=== PATIENT | female | born 1970 | race Caucasian/White ===

== ENCOUNTER → 2016-06-30 | Outpatient (CLI) | payer OTHER ==
--- NOTE | 2016-06-30 09:26 | RAD ---
Lumbar spine, 5 views, 06/30/2016: History: Pain The lumbar vertebral heights are well-maintained. The intervertebral disc spaces are well preserved. There are mild sclerotic changes involving the facet joints in the lower lumbar spine. There is no evidence of spondylolysis. There is increased stool in the right colon. Surgical clips are noted in the right lower quadrant of the abdomen. IMPRESSION: 1. Mild lower lumbar facet joint arthropathy. 2. No acute lumbar spine abnormality is detected.
--- NOTE | 2016-06-30 09:32 | RAD ---
Pelvis with left hip, 2 views, 06/30/2016: History: Left hip pain No fracture or destructive bony lesion is seen. There is minimal narrowing of both hip joints. The articular surfaces are smooth. Surgical clips are present in the right lower quadrant. IMPRESSION: 1. Minimal narrowing of both hip joints. 2. No acute abnormality is detected.
== END | disposition home or self-care (01) ==
LOC: DXRADRC 08:43
PROVIDERS: ATTEND Physician Assistant Medical
DX: M54.40 Lumbago with sciatica, unspecified side (principal); M46.90 Unspecified inflammatory spondylopathy, site unspecified
CPT/HCPCS: 72110; 73501

== ENCOUNTER → 2016-12-20 | Outpatient (CLI) | payer OTHER ==
--- NOTE | 2016-12-20 10:29 | RAD ---
Indication injury. Pain. AP oblique and lateral views of the left ankle were obtained. No bony abnormality is seen
== END | disposition home or self-care (01) ==
LOC: DXRADRC 10:11
PROVIDERS: ATTEND Physician Assistant Medical
DX: M25.572 Pain in left ankle and joints of left foot (principal)
CPT/HCPCS: 73610

== ENCOUNTER 2018-03-11 16:01 | Emergency (ER) | payer OTHER ==
[2018-03-11 16:19] VITALS: BP 157/93
[2018-03-11] MEDS ORDERED: ALBUTEROL SULFATE 2.5 MG/3 ML NEBU. ONE (16:24)
[2018-03-11] MEDS ORDERED: IPRATRPIUM/ALBUTEROL 0.5/2.5MG 3 ML NEBU. ONE (16:26)
[2018-03-11] MEDS ORDERED: IPRATRPIUM/ALBUTEROL 0.5/2.5MG 3 ML NEBU. NEB ONE (16:45)
[2018-03-11] MEDS ORDERED: LIDOCAINE 2% VISCOUS 15 ML SOLUTION. SWSW ONE (16:45)
[2018-03-11] MEDS ORDERED: ALBU8.5H8 INH (17:11)
[2018-03-11] MEDS ORDERED: LIDO15SO2 MM (17:11)
--- NOTE | 2018-03-11 17:11 | PHYS DOC ---
Past History Past Medical History: Migraines Past Surgical History: Appendectomy Smoking: Non-smoker Alcohol Use: Occasionally Drug Use: None Adult General Chief Complaint Chief Complaint: FOREIGN BODY HPI HPI Patient is a 47 year old female who presents with complaining of foreign body sensation in her throat. Patient states she was eating cauliflower and felt something stuck in her throat had nausea and episodes of cough and feeling she needs to clear her throat for the last an hour. She denies vomiting and tolerated liquids. Patient did not have history of esophageal foreign body. Review of Systems Review of Systems Constitutional: Denies fever or chills [] Eyes: Denies change in visual acuity, redness, or eye pain [] HENT: Denies nasal congestion or sore throat [] Respiratory: Reports cough and shortness of breath[] Cardiovascular: No additional information not addressed in HPI [] GI: Denies abdominal pain, nausea, vomiting, bloody stools or diarrhea [] : Denies dysuria or hematuria [] Musculoskeletal: Denies back pain or joint pain [] Integument: Denies rash or skin lesions [] Neurologic: Denies headache, focal weakness or sensory changes [] Endocrine: Denies polyuria or polydipsia [] All other systems were reviewed and found to be within normal limits, except as documented in this note. Current Medications Current Medications Current Medications Medications (Trade) Dose Ordered Sig/Breana Start Time Stop Time Status Last Admin Dose Admin Albuterol Sulfate (Ventolin) 2.5 mg STK-MED ONCE 03/11/18 16:24 03/11/18 16:25 DC Albuterol/ Ipratropium (Duoneb) 3 ml STK-MED ONCE 03/11/18 16:26 03/11/18 16:27 DC Lidocaine HCl (Viscous Lidocaine) 15 ml 1X ONCE 03/11/18 16:45 03/11/18 16:47 DC 03/11/18 16:43 15 ML Allergies Allergies Allergies Coded Allergies Type Severity Reaction Last Updated Verified Penicillins Allergy Unknown 03/11/18 Yes Physical Exam Physical Exam Constitutional: Well developed, well nourished, mild distress, non-toxic appearance. [] HENT: Normocephalic, atraumatic, oropharynx moist, no oral exudates, nose normal. [] Eyes: PERRLA, EOMI, conjunctiva normal, no discharge. [] Neck: Normal range of motion, no tenderness, supple, no stridor. [] Cardiovascular:Heart rate regular rhythm, no murmur [] Lungs & Thorax: Bilateral breath sounds clear to auscultation [] Abdomen: Bowel sounds normal, soft, no tenderness, no masses, no pulsatile masses. [] Skin: Warm, dry, no erythema, no rash. [] Back: No tenderness, no CVA tenderness. [] Extremities: No tenderness, no cyanosis, no clubbing, ROM intact, no edema. [] Neurologic: Alert and oriented X 3, normal motor function, normal sensory function, no focal deficits noted. [] Psychologic: Affect normal, judgement normal, mood normal. [] Current Patient Data Vital Signs Vital Signs Date Time Temp Pulse Resp B/P (MAP) Pulse Ox O2 Delivery O2 Flow Rate FiO2 03/11/18 16:29 98 Room Air 03/11/18 16:19 97.7 79 16 EKG EKG [] Radiology/Procedures Radiology/Procedures [] Course & Med Decision Making Course & Med Decision Making Evaluation of patient in ER showed 47-year-old male patient with complaining of foreign body sensation in her throat. Patient had a table cough during exam and treated with lidocaine viscous and felt better. Patient tolerated oral intake in ER. Plan discharge patient home to diagnose of esophageal irritation and prescription of lidocaine viscous and albuterol inhaler. Dragon Disclaimer Dragon Disclaimer This electronic medical record was generated, in whole or in part, using a voice recognition dictation system. Departure Departure: Impression: Primary Impression: Sensation of foreign body in esophagus Disposition: HOME, SELF-CARE (at 1707) Condition: IMPROVED Referrals: DUKE PALACIOS APRN (PCP) Patient Instructions: Esophageal Spasm Additional Instructions: Drink plenty of liquids Follow-up with your primary care physician in 3-5 days Return to ER if not getting better Scripts Lidocaine HCl (Lidocaine HCl Viscous) 15 Ml Solution 15 ML MM QID PRN for PAIN, #120 ML Prov: IRAM VILLARREAL MD 03/11/18 Albuterol Sulfate (PROAIR HFA INHALER) 8.5 Gm Hfa.aer.ad 2 PUFF INH PRN Q6HRS PRN for SHORTNESS OF BREATH, #1 INHALER 0 Refills Prov: IRAM VILLARREAL MD 03/11/18 IRAM VILLARREAL MD Mar 11, 2018 17:11
== END 2018-03-11 17:30 | disposition home or self-care (01) ==
LOC: ER 16:01
DX: R09.89 Other specified symptoms and signs involving the circulatory and respiratory systems (principal); G43.909 Migraine, unspecified, not intractable, without status migrainosus; Z88.0 Allergy status to penicillin
CPT/HCPCS: 94640; 99283; J7620

== ENCOUNTER → 2019-03-12 | Outpatient (CLI) | payer OTHER ==
[~2019-03-12] MED LIST: ALBU2.5V8 INH; LIDO15SO2 MM
--- NOTE | 2019-03-12 15:18 | RAD ---
DATE: March 12, 2019 EXAM: DIGITAL DIAGNOSTIC BILATERAL, BREAST LEFT sonogram HISTORY: History of left breast lump and pain for many months. COMPARISON: None. Baseline mammogram. This study was interpreted with the benefit of Computerized Aided Detection (CAD). DIAGNOSTIC BILATERAL MAMMOGRAPHIC FINDINGS: Breast Density: HETERO The breast parenchyma is heterogenously dense, which could reduce sensitivity of mammography. Breast parenchyma level C. there is a nodule 2.5 cm straight back from the nipple CC and MLO projections. This results in focal compression view in the CC plane and is not going completely in the MLO projection. This most likely is benign finding but sonography will be performed. No focal mammographic abnormality seen to correspond to the palpable lump which is marked with a BB along the upper medial aspect of the left breast. No clustering of microcalcifications are evident on either side. LEFT BREAST SONOGRAPHY: High-resolution sonography of the palpable lump in the area of pain as indicated by the patient 8 cm from the nipple 11:00 position was performed. No focal sonographic abnormality seen here. At the 11:00 position 3 cm the nipple, a small complex hypoechoic nodule seen measuring 4 mm in greatest dimension. Thin echogenic capsule is seen sound through transmission is seen. No internal color flow is evident. Therefore, this most likely represents a small complex cyst. At the 6 clock position to summation the nipple, another similar problem complex cyst is seen measuring 3 mm in size. IMPRESSION: Probable benign mammographic nodule seen in the MLO projection only. Probable benign complex cysts of the left breast. Recommend a 6 month follow-up mammogram and sonogram of the left breast to ensure stability. No focal mammographic or sonographic abnormality is seen to correspond to the area of the palpable lump of the 11 o'clock position of the left breast as indicated by the patient. Therefore, with regard to any palpable abnormality, follow-up should be clinical. BI-RADS CATEGORY: 3 PROBABLE BENIGN-SHORT TERM F/U RECOMMENDED FOLLOW-UP: 6M 6 MONTH FOLLOW-UP PQRS compliance statement: Patient information was entered into a reminder system with a target due date September 11, 2019 for the next mammogram and sonogram. Mammography is a sensitive method for finding small breast cancers, but it does not detect them all and is not a substitute for careful clinical examination. A negative mammogram does not negate a clinically suspicious finding and should not result in delay in biopsying a clinically suspicious abnormality. "Our facility is accredited by the [employer] Mammography Program." The patient's breast density may affect the ability of mammography to detect breast cancer. There are 4 categories of breast density, A, B, C and D. Breast density A means that most of the breast tissue is replaced with adipose tissue and therefore is not dense. Breast density B means that the breast tissue is mildly dense and scattered. Breast density C means that the breast tissue is heterogeneously dense. Breast density D means that the breast tissue is very dense. Breast densities especially C and D may decrease the sensitivity of mammography to detect breast cancer. Therefore, the patient may benefit from 3-D breast mammography (3D breast tomography) as a part of their screening mammogram. Insurance may or may not pay for this additional imaging. The patient's breast density based on today's mammogram is category C.
--- NOTE | 2019-03-12 15:27 | RAD ---
EXAM: Pelvic sonogram. HISTORY: Dysfunctional uterine bleeding. TECHNIQUE: Sonographic imaging of the pelvis performed. COMPARISON: None. FINDINGS: The uterus measures 9.4 x 5.1 x 5.5 cm. The endometrial stripe measures 8 mm. The ovaries are normal in size and demonstrate normal blood flow. There are multiple ovarian follicles. There is a suspected complex left ovarian cyst measuring 1.4 cm, possibly hemorrhagic in etiology. This demonstrates no internal blood flow to suggest a solid lesion component. There is no pelvic free fluid. IMPRESSION: 1. 1.4 cm suspected complex left ovarian cyst, possibly hemorrhagic in etiology. 2. Otherwise, unremarkable pelvic sonogram. Electronically signed by: Ana Laura Tidwell MD (03/12/2019 3:24 PM) [place] [id number]
== END | disposition home or self-care (01) ==
LOC: US 13:02
PROVIDERS: ATTEND Physician Assistant Medical
DX: N83.8 Other noninflammatory disorders of ovary, fallopian tube and broad ligament (principal); N93.8 Other specified abnormal uterine and vaginal bleeding; N63.20 Unspecified lump in the left breast, unspecified quadrant
CPT/HCPCS: 76641; 76830; 76856; 77066

== ENCOUNTER → 2019-08-07 | Outpatient (CLI) | payer OTHER ==
[~2019-08-07] MED LIST changes: -LIDO15SO2 MM; +LIDO20SO10 MM
[2019-08-07 16:13] LABS: BASO # 0.1 x10^3/uL (0.0-0.2); BASO % 1 % (0-3); EOS # 0.2 x10^3/uL (0.0-0.7); EOS % 3 % (0-3); HEMOGLOBIN 12.7 g/dL (12.0-15.5); LYMPH # 2.5 x10^3/uL (1.0-4.8); LYMPH % 32 % (24-48); MEAN CORPUSCULAR HEMOGLOBIN 29 pg (25-35); MEAN CORPUSCULAR HGB CONC 33 g/dL (31-37); MEAN CORPUSCULAR VOLUME 87 fL (79-100); MONO # 0.6 x10^3/uL (0.0-1.1); MONO % 8 % (0-9); NEUT # 4.3 x10^3uL (1.8-7.7); NEUT % 56 % (31-73); PLATELET COUNT 337 x10^3/uL (140-400); RED BLOOD COUNT 4.36 x10^6/uL (3.50-5.40); RED CELL DISTRIBUTION WIDTH 13.4 % (11.5-14.5); WHITE BLOOD COUNT 7.7 x10^3/uL (4.0-11.0)
== END | disposition home or self-care (01) ==
LOC: LAB 15:49
PROVIDERS: ATTEND Nurse Practitioner Women's Health
DX: N92.0 Excessive and frequent menstruation with regular cycle (principal)
CPT/HCPCS: 36415; 85025

== ENCOUNTER 2020-02-27 19:31 | Emergency (ER) | payer OTHER ==
[~2020-02-27] VITALS: Ht 167.6 cm; Wt 65.0 kg
[2020-02-27 20:13] LABS: BASO % 0 % (0-3); EOS # 0.2 x10^3/uL (0.0-0.7); EOS % 3 % (0-3); HEMATOCRIT 37.4 % (36.0-47.0); HEMOGLOBIN 12.6 g/dL (12.0-15.5); LYMPH # 2.7 x10^3/uL (1.0-4.8); LYMPH % 41 % (24-48); MEAN CORPUSCULAR HEMOGLOBIN 28 pg (25-35); MEAN CORPUSCULAR HGB CONC 34 g/dL (31-37); MEAN CORPUSCULAR VOLUME 84 fL (79-100); MONO # 0.6 x10^3/uL (0.0-1.1); MONO % 10 % (0-9); NEUT # 3.1 x10^3uL (1.8-7.7); NEUT % 47 % (31-73); PLATELET COUNT 316 x10^3/uL (140-400); RED BLOOD COUNT 4.48 x10^6/uL (3.50-5.40); RED CELL DISTRIBUTION WIDTH 13.6 % (11.5-14.5); WHITE BLOOD COUNT 6.7 x10^3/uL (4.0-11.0)
--- NOTE | 2020-02-27 20:16 | RAD ---
Examination: CHEST AP ONLY History: Reason: covid / Spl. Instructions: / History: Comparison: 03/28/2014. Findings: AP portable upright frontal view of the chest was obtained. The cardiomediastinal silhouette is normal. Lungs are clear. Calcified granulomas involve the left lung. There is no pneumothorax. No pleural effusion is appreciated. No acute bone abnormality. IMPRESSION: No acute cardiopulmonary process. Electronically signed by: Hugo Mckinnon MD (02/27/2020 8:13 PM) [facility]
[2020-02-27 20:19] LABS: CALCIUM 8.2 mg/dL (8.5-10.1); CREATININE 0.9 mg/dL (0.6-1.0); GFR 66.8; POTASSIUM 3.3 mmol/L (3.5-5.1)
[2020-02-27 20:25] LABS: ALBUMIN 3.4 g/dL (3.4-5.0); ALBUMIN/GLOBULIN RATIO 0.9 (1.0-1.7); TOTAL BILIRUBIN 0.3 mg/dL (0.2-1.0); TOTAL PROTEIN 7.2 g/dL (6.4-8.2)
[2020-02-27 20:45] VITALS: BP 115/87
--- NOTE | 2020-02-27 20:48 | PHYS DOC ---
Past History Past Medical History: Migraines, Pneumonia Past Surgical History: Appendectomy Smoking: Non-smoker Alcohol Use: Occasionally Drug Use: None General Adult EDM: Chief Complaint: OTHER COMPLAINTS HPI: HPI: 49-year-old female presents with dizziness and shortness of breath. Patient was diagnosed with COVID-19 recently. She went to walk across the room and became a bit short of breath followed by dizziness. This made her a bit scared and she got more dizzy. She sat down and thought she was about to pass out. She had bilateral hand tingling. She has not had a fever at home. She is feeling more at baseline at this time. She has generalized body aches and fatigue. Review of Systems: Review of Systems: Constitutional: Denies fever or chills. Fatigue, body aches. Eyes: Denies change in visual acuity HENT: Denies nasal congestion or sore throat Respiratory: shortness of breath Cardiovascular: Denies chest pain or edema GI: Denies abdominal pain, nausea, vomiting, bloody stools or diarrhea : Denies dysuria Musculoskeletal: Denies back pain or joint pain Integument: Denies rash Neurologic: Denies headache, focal weakness or sensory changes Endocrine: Denies polyuria or polydipsia Lymphatic: Denies swollen glands Psychiatric: Denies depression or anxiety Allergies: Allergies: Allergies Coded Allergies Type Severity Reaction Last Updated Verified Penicillins Allergy Unknown 03/11/18 Yes tramadol Allergy Unknown 02/27/20 Yes Physical Exam: PE: Constitutional: Well developed, well nourished, no acute distress, non-toxic appearance. [] HENT: Normocephalic, atraumatic, bilateral external ears normal, oropharynx moist, no oral exudates, nose normal. [] Eyes: PERRLA, EOMI, conjunctiva normal, no discharge. [] Neck: Normal range of motion, no tenderness, supple, no stridor. [] Cardiovascular: Heart rate 70, regular rhythm, no murmur [] Lungs & Thorax: Bilateral breath sounds clear to auscultation [] Abdomen: Bowel sounds normal, soft, no tenderness, no masses, no pulsatile masses. [] Skin: Warm, dry, no erythema, no rash. [] Back: No tenderness, no CVA tenderness. [] Extremities: No tenderness, no cyanosis, no clubbing, ROM intact, no edema. [] Neurologic: Alert and oriented X 3, normal motor function, normal sensory function, no focal deficits noted. [] Psychologic: Affect normal, judgement normal, mood anxious [] Current Patient Data: Labs: Laboratory Tests Test 02/27/20 19:45 White Blood Count 6.7 x10^3/uL (4.0-11.0) Red Blood Count 4.48 x10^6/uL (3.50-5.40) Hemoglobin 12.6 g/dL (12.0-15.5) Hematocrit 37.4 % (36.0-47.0) Mean Corpuscular Volume 84 fL (79-100) Mean Corpuscular Hemoglobin 28 pg (25-35) Mean Corpuscular Hemoglobin Concent 34 g/dL (31-37) Red Cell Distribution Width 13.6 % (11.5-14.5) Platelet Count 316 x10^3/uL (140-400) Neutrophils (%) (Auto) 47 % (31-73) Lymphocytes (%) (Auto) 41 % (24-48) Monocytes (%) (Auto) 10 % (0-9) H Eosinophils (%) (Auto) 3 % (0-3) Basophils (%) (Auto) 0 % (0-3) Neutrophils # (Auto) 3.1 x10^3uL (1.8-7.7) Lymphocytes # (Auto) 2.7 x10^3/uL (1.0-4.8) Monocytes # (Auto) 0.6 x10^3/uL (0.0-1.1) Eosinophils # (Auto) 0.2 x10^3/uL (0.0-0.7) Basophils # (Auto) 0.0 x10^3/uL (0.0-0.2) Sodium Level 139 mmol/L (136-145) Potassium Level 3.3 mmol/L (3.5-5.1) L Chloride Level 105 mmol/L (98-107) Carbon Dioxide Level 22 mmol/L (21-32) Anion Gap 12 (6-14) Blood Urea Nitrogen 11 mg/dL (7-20) Creatinine 0.9 mg/dL (0.6-1.0) Estimated GFR (Cockcroft-Gault) 66.8 BUN/Creatinine Ratio 12 (6-20) Glucose Level 91 mg/dL (70-99) Calcium Level 8.2 mg/dL (8.5-10.1) L Total Bilirubin 0.3 mg/dL (0.2-1.0) Aspartate Amino Transferase (AST) 25 U/L (15-37) Alanine Aminotransferase (ALT) 38 U/L (14-59) Alkaline Phosphatase 65 U/L (46-116) Total Protein 7.2 g/dL (6.4-8.2) Albumin 3.4 g/dL (3.4-5.0) Albumin/Globulin Ratio 0.9 (1.0-1.7) L Vital Signs: Vital Signs Date Time Temp Pulse Resp B/P (MAP) Pulse Ox O2 Delivery O2 Flow Rate FiO2 02/27/20 19:31 98.5 70 16 128/84 (99) 100 Room Air EKG: EKG: [] Radiology/Procedures: Radiology/Procedures: [] Impressions: Examination: CHEST AP ONLY History: Reason: covid / Spl. Instructions: / History: Comparison: 03/28/2014. Findings: AP portable upright frontal view of the chest was obtained. The cardiomediastinal silhouette is normal. Lungs are clear. Calcified granulomas involve the left lung. There is no pneumothorax. No pleural effusion is appreciated. No acute bone abnormality. IMPRESSION: No acute cardiopulmonary process. Electronically signed by: Maximilian Bob MD (02/27/2020 8:13 PM) [facility] DICTATED AND SIGNED BY: MAXIMILIAN BOB MD DATE: 02/27/202012 CC: FIDENCIO HERNANDEZ DO; JARED HALE PA ~ Heart Score: Risk Factors: Risk Factors: DM, Current or recent (<one month) smoker, HTN, HLP, family history of CAD, obesity. Risk Scores: Score 0 - 3: 2.5% MACE over next 6 weeks - Discharge Home Score 4 - 6: 20.3% MACE over next 6 weeks - Admit for Clinical Observation Score 7 - 10: 72.7% MACE over next 6 weeks - Early Invasive Strategies Course & Med Decision Making: Course & Med Decision Making Pertinent Labs and Imaging studies reviewed. (See chart for details) Patient's chest x-ray is unremarkable. Her vitals been completely stable the entire time sitting in the emergency room. Her labs are unremarkable. Explained to the patient that this is how COVID-19 feels. I think little woozy from fatigue and it made her very scared which made her symptoms worse. I counseled her about these things. If her condition worsens she will return the emergency room. I also advised that she get a pulse oximeter for home. She is stable for discharge at this time. [] Dragon Disclaimer: Dragon Disclaimer: This electronic medical record was generated, in whole or in part, using a voice recognition dictation system. Departure Departure: Impression: Primary Impression: COVID-19 Referrals: JARED HALE (PCP) Additional Instructions: You have been tested for or diagnosed with COVID-19. It is an infection caused by a new type of coronavirus. COVID-19 will cause cold-like or mild flu symptoms in most. It can cause more severe symptoms like problems breathing in some. There is no treatment for COVID-19. The body will clear the infection over time. Self-care will help to ease discomfort. Steps to Take: Self-Care Rest as needed. Healthy habits may help you feel better. Steps include: Choose healthy foods including fruits and vegetables. Drink water throughout the day. Get plenty of sleep each night. If you smoke, try to quit. It may ease breathing. Avoid alcohol. Keep Others Healthy The virus can spread to others. Droplets are released every time you sneeze or cough. The droplets can get into the mouth, nose, or eyes of people near you and lead to infection. To lower the chances of spreading COVID-19 to others: Stay at home until your doctor has said it is safe to leave. If you tested positive this will mean staying isolated until both of the following are true: At least 7 days have passed since the start of illness. You are free of fever for at least 72 hours without the use of medicine. During this time: - Avoid public areas, events, or transportation. Do not return to work or school until your doctor has said it is safe to do so. - Call ahead if you need to go to a medical center. Let them know you may have COVID-19. It will help them guide you where to go. They may also ask you to wear a facemask when you come to the office. - If you call for emergency medical services, let them know you may have COVID- 19. While at home: - Try to avoid close contact with others. Stay about 6 feet away. - If possible, spend most of your time in a separate room from others. - Use a face mask if you will be in close contact with others such as sharing a room or vehicle. - Have someone wipe down common surfaces in the home. Use household lapping machine tender every day on areas like doorknobs, counters, or sinks. - Cough or sneeze into a tissue. Throw the tissue away right after use. If a tissue is not available, cough or sneeze into your elbow. - Wash your hands often. Wash them after sneezing or coughing. Use soap and water and wash for at least 20 seconds. Alcohol based hand tube cleaner can be used if soap and water is not available. - Do not prepare food for others. Avoid sharing personal items like forks, spoons, or toothbrushes. - Avoid close contact with pets while you are sick. There is no evidence of the virus passing to pets. This is a safety step until more is known about this virus. Isolation can be frustrating. Social interaction can help. Keep in touch with friends and family through phone and tech options. You can still interact with others in your home, just keep a safe distance of about 6 feet. Follow-up: Your doctors office will check in with you to see if there are any changes in your health. You may be asked to keep track of symptoms to share with them. They will also let you know when you are clear to be in public again. Problems to Look Out For: Contact your doctor if your recovery is not going as you expect. Get emergency care if you have problems such as: - Trouble breathing - Nonstop chest pain or pressure - Changes in awareness, confusion, or problems waking - Lips or face have bluish color - Worsening of symptoms If you think you have an emergency, call for emergency medical services right away. As taken from [facility] [place] FIDENCIO Mcneill DO Feb 27, 2020 20:48
== END 2020-02-27 20:55 | disposition home or self-care (01) ==
LOC: ER 19:31
DX: U07.1 COVID-19 (principal); G43.909 Migraine, unspecified, not intractable, without status migrainosus; Z88.0 Allergy status to penicillin; Z88.6 Allergy status to analgesic agent
CPT/HCPCS: 36415; 71045; 80053; 85025; 99284

== ENCOUNTER 2021-01-26 07:08 | Emergency (ER) | payer OTHER, BC ==
[~2021-01-26] VITALS: Ht 162.6 cm; Wt 67.0 kg
[2021-01-26] MEDS ORDERED: HYDROcodone/APAP 5/325MG 1 TAB TABLET PO ONE (07:30)
--- NOTE | 2021-01-26 07:44 | PHYS DOC ---
Past History Past Medical History: Migraines, Pneumonia Past Surgical History: Appendectomy, Hysterectomy Smoking: Non-smoker Alcohol Use: Occasionally Drug Use: None General Adult EDM: Chief Complaint: ANKLE PROBLEM HPI: HPI: Patient is a 50-year-old female coming in for right ankle pain and swelling. Patient was at work earlier this morning when she was walking down some steps and missed 1. Patient states she felt her ankle roll inwards and felt a pop. Patient failed her back and had to scoot herself the rest of the way down the stairs. Patient is unable to bear weight. Denies any prior injuries to this ankle. Denies any recent illness or blood thinner use. Review of Systems: Review of Systems: All other systems within normal limits except for as noted in the HPI Current Medications: Current Meds: Current Medications Medications (Trade) Dose Ordered Sig/Breana Start Time Stop Time Status Last Admin Dose Admin Acetaminophen/ Hydrocodone Bitart (Lortab 5/325) 1 tab 1X ONCE 01/26/21 07:30 01/26/21 07:31 UNV 01/26/21 07:31 1 TAB Allergies: Allergies: Allergies Coded Allergies Type Severity Reaction Last Updated Verified Penicillins Allergy Unknown 03/11/18 Yes tramadol Allergy Unknown 02/27/20 Yes Physical Exam: PE: Constitutional: Well developed, well nourished, no acute distress, non-toxic appearance. [] HENT: Normocephalic, atraumatic, bilateral external ears normal, nose normal. [] Eyes: PERRLA, conjunctiva normal, no discharge. [] Neck: No rigidity, supple, no stridor. [] Cardiovascular: Regular rate and rhythm, brisk cap refill [] Lungs & Thorax: Non labored symmetric respirations, no tachypnea or respiratory distress [] Abdomen: Soft, nondistended. Skin: Warm, dry, no erythema, no rash. [] Back: Unremarkable Extremities: No deformities, range of motion grossly intact, no lower extremity edema. Swelling and tenderness to right ankle [] Neurologic: Alert and oriented X 3, no focal deficits noted. [] Psychologic: Affect normal, judgement normal, mood normal. [] Current Patient Data: Vital Signs: Vital Signs Date Time Temp Pulse Resp B/P (MAP) Pulse Ox O2 Delivery O2 Flow Rate FiO2 01/26/21 07:31 16 100 01/26/21 07:10 96.6 74 119/73 (88) EKG: EKG: [] Radiology/Procedures: Radiology/Procedures: [][address] [address] IMAGING REPORT Signed PATIENT: FABRICIO GALAN ACCOUNT: [id number] : 1970 LOCATION: ER AGE: 50 SEX: F EXAM STATUS: REG ER ORD. PHYSICIAN: ISACC CHATMAN MD REASON: ANKLE PAIN, FELL ON STAIRS, PAIN BILATERALLY, SWELLING PROCEDURE: ANKLE RIGHT 3V XR EXAM OF ANKLE_RIGHT 3VIEWS Clinical indications: Reason: ANKLE PAIN, FELL ON STAIRS, PAIN BILATERALLY, SWELLING / Spl. Instructions: / History: Findings: Lateral soft tissue swelling is seen. No acute fracture or lytic process is seen. There is anterior subluxation of the talus with respect to the tibia secondary to ligament disruption. IMPRESSION: No acute fracture. Anterior subluxation of the talus with respect to the tibia secondary to ligament disruption. Electronically signed by: Jeannie Nails MD (01/26/2021 8:07 AM) [id number] DICTATED AND SIGNED BY: JEANNIE NAILS MD DATE: 01/26/21802 CC: ISACC CHATMAN MD; JARED HALE ~MTH0 0 Heart Score: C/O Chest Pain: No Risk Factors: Risk Factors: DM, Current or recent (<one month) smoker, HTN, HLP, family history of CAD, obesity. Risk Scores: Score 0 - 3: 2.5% MACE over next 6 weeks - Discharge Home Score 4 - 6: 20.3% MACE over next 6 weeks - Admit for Clinical Observation Score 7 - 10: 72.7% MACE over next 6 weeks - Early Invasive Strategies Course & Med Decision Making: Course & Med Decision Making Discussed x-ray findings with Dr. Treviño, with the patient be splinted and sent up to his office for evaluation. Rita Disclaimer: Rita Disclaimer: This electronic medical record was generated, in whole or in part, using a voice recognition dictation system. Departure Departure: Impression: Primary Impression: Sprain of right ankle Disposition: 01 HOME / SELF CARE / HOMELESS Condition: STABLE Referrals: HELEN TREVIÑO DPM Patient Instructions: Cast or Splint Care Scripts Hydrocodone Bit/Acetaminophen (HYDROCODONE-APAP 5-325 ) 1 Each Tablet 1 TAB PO PRN Q6HRS PRN for PAIN for 5 Days, #15 TAB 0 Refills Prov: ISACC CHATMAN MD 01/26/21 ISACC CHATMAN MD Jan 26, 2021 07:44
--- NOTE | 2021-01-26 08:09 | RAD ---
XR EXAM OF ANKLE_RIGHT 3VIEWS Clinical indications: Reason: ANKLE PAIN, FELL ON STAIRS, PAIN BILATERALLY, SWELLING / Spl. Instructi ons: / History: Findings: Lateral soft tissue swelling is seen. No acute fracture or lytic process is seen. There is anterior subluxation of the talus with respect to the tibia secondary to ligament disruption. IMPRESSION: No acute fracture. Anterior subluxation of the talus with respect to the tibia secondary to ligament disruption. Electronically signed by: South Nails MD (01/26/2021 8:07 AM) [id number]
[2021-01-26] MEDS ORDERED: HYDR-2155 PO (09:06)
[2021-01-26] MEDS ORDERED: KETOROLAC 60 MG/2 ML VIAL. IM ONE (09:30)
[2021-01-26 09:40] VITALS: BP 117/72
== END 2021-01-26 09:45 | disposition home or self-care (01) ==
LOC: ER 07:08
DX: S93.401A Sprain of unspecified ligament of right ankle, initial encounter (principal); Z88.0 Allergy status to penicillin; Z88.6 Allergy status to analgesic agent; X50.9XXA Other and unspecified overexertion or strenuous movements or postures, initial encounter; Y93.01 Activity, walking, marching and hiking; Y92.89 Other specified places as the place of occurrence of the external cause; Y99.8 Other external cause status; G43.909 Migraine, unspecified, not intractable, without status migrainosus
CPT/HCPCS: 29515; 73610; 96372; 99284; J1885